=== PATIENT | male | born 1980 | race African-American/Black ===

== ENCOUNTER 2017-01-09 07:38 | Emergency (ER) | payer MEDICAID ==
[~2017-01-09] VITALS: Ht 172.7 cm; Wt 75.0 kg
[~2017-01-09 07:38] MED LIST: INSLIS SUBCUT
[2017-01-09] MEDS ORDERED: HYDROCODONE/ACETAMINOPHEN 5/325MG TABLET PO ONE (08:00)
[2017-01-09] MEDS ORDERED: KETOROLAC 60MG/2ML VIAL IM ONE (08:00)
[2017-01-09 12:00] VITALS: BP 169/98
== END 2017-01-09 12:01 | disposition home or self-care (01) ==
LOC: ER 08:03
DX: R07.9 Chest pain, unspecified (principal); R07.81 Pleurodynia; I10 Essential (primary) hypertension; E11.9 Type 2 diabetes mellitus without complications; Z88.0 Allergy status to penicillin; V48.5XXA Car driver injured in noncollision transport accident in traffic accident, initial encounter; Y93.89 Activity, other specified; Y92.488 Other paved roadways as the place of occurrence of the external cause
CPT/HCPCS: 71010; 93005; 96372; 99284; J1885